=== PATIENT | female | born 1960 | race Caucasian/White ===

== ENCOUNTER 2018-08-26 06:04 | Day surgery (SDC) | payer BC ==
[~2018-08-26 06:04] MED LIST: Lactated Ringers 1,000 ML IV SCH
[2018-08-26] MEDS ORDERED: DIPRIVAN 200 MG/20 ML IV ONE (06:05)
[2018-08-26] MEDS ORDERED: Ketamine HCl 50 MG/ML IJ ONE (06:05)
--- NOTE | 2018-08-26 07:52 | OP ---
SURGERY DATE/TIME: 08/26/2018 0658 PREOPERATIVE DIAGNOSIS: Colon polyps. POSTOPERATIVE DIAGNOSIS: Adenomatous appearing polyp in the cecum. PROCEDURE: Colonoscopy with biopsy. SURGEON: Dr. Kemp. ANESTHESIA: MAC. Medications given by anesthesia department. HISTORY: The patient is a 58 year-old white female presenting now for reinvestigation. She previously had colonoscopy three years ago which adenomatous polyps were found. The patient was reappraised of the risks of the procedure including the risk of perforation, phlebitis, untoward reaction to medication, bleeding and missed lesions. The patient verbalized her understanding and desired to have the procedure performed. DESCRIPTION OF PROCEDURE: The patient was given the medications by the anesthesia department. She had continuous pulse oximetry, ECG monitoring, intermittent blood pressure monitoring and tidal CO2 monitoring during the examination. She was placed in the left lateral decubitus position. A digital rectal examination was performed and revealed normal anal sphincter tone and no masses. The flexible Olympus pediatric colonoscope was used to intubate the rectum. A view of the colon was developed sequentially to the cecum. Upon insertion and withdrawal, including a retroflex view in the rectum was noted one polyp measuring approximately 0.5 to 1 cm in size this is destroyed using passes of cold biopsy forceps. The scope was removed from the patient who tolerated the procedure well and was sent back to OP recovery in good condition. The prep was noted to be good.
[2018-08-26 08:56] VITALS: BP 132/78; PULSE 78; O2SAT 98
== END 2018-08-26 08:45 | disposition home or self-care (01) ==
LOC: SDC 06:04
PROVIDERS: ATTEND Family Medicine
DX: D12.0 Benign neoplasm of cecum (principal); Z86.010 Personal history of colon polyps
CPT/HCPCS: 88305; J2704